=== PATIENT | female | born 1945 | race Caucasian/White ===

== ENCOUNTER 2020-10-11 00:19 | Emergency (ER) | payer MEDICARE, OTHER ==
[~2020-10-11] VITALS: Ht 154.9 cm; Wt 59.0 kg
[2020-10-11 05:05] LABS: Calcium, Ionized (POC) 1.24 mmol/L (1.10-1.46); Chloride (POC) 106 mmol/L (98-108); Creatinine (POC) 1.7 mg/dL (0.6-1.0); Glucose (ISTAT POC) 110 mg/dL (70-99); Hemoglobin (POC) 11.9 g/dL (12.0-16.0); Potassium (POC) 3.8 mmol/L (3.5-5.5); Sodium (POC) 142 mmol/L (135-148); Total CO2 (POC) 23 mmol/L (21-32)
== END 2020-10-11 05:21 | disposition home or self-care (01) ==
LOC: ER 00:19
PROVIDERS: Emergency Medicine
DX: S00.11XA Contusion of right eyelid and periocular area, initial encounter (principal); I10 Essential (primary) hypertension; W01.10XA Fall on same level from slipping, tripping and stumbling with subsequent striking against unspecified object, initial encounter
CPT/HCPCS: 36415; 70450; 70486; 72125; 80047; 85014; 99284-25

== ENCOUNTER 2021-11-18 22:36 | Emergency (ER) | payer MEDICARE ==
[~2021-11-18] VITALS: Ht 154.9 cm; Wt 72.6 kg
[2021-11-19] MEDS ORDERED: LOSARTAN POTASS25 M2 PO (01:42)
[2021-11-19] MEDS ORDERED: ATENOLOL25 MG PO (01:42)
[2021-11-19] MEDS ORDERED: CATAPRES0.1 MG PO (01:42)
[2021-11-19] MEDS ORDERED: FENO54 PO (01:43)
[2021-11-19] MEDS ORDERED: LOVASTATIN20 MG PO (01:43)
[2021-11-19] MEDS ORDERED: METF500 PO (01:43)
== END 2021-11-19 03:19 | disposition home or self-care (01) ==
LOC: ER 22:36
DX: S01.01XA Laceration without foreign body of scalp, initial encounter (principal); Z79.899 Other long term (current) drug therapy; Z79.84 Long term (current) use of oral hypoglycemic drugs; W18.30XA Fall on same level, unspecified, initial encounter
CPT/HCPCS: 12002; 99282-25

== ENCOUNTER 2023-04-07 16:23 | Emergency (ER) | payer MEDICARE ==
[~2023-04-07] VITALS: Ht 154.9 cm; Wt 52.2 kg
[~2023-04-07 16:23] MED LIST: ATENOLOL25 MG PO; CATAPRES0.1 MG PO; FENO54 PO; LOSARTAN POTASS25 M2 PO; LOVASTATIN20 MG PO; METF500 PO
[2023-04-07 18:28] LABS: BASOPHILS ABSOLUTE AUTO 0.09 K/mm3 (0.00-0.23); BASOPHILS PERCENT AUTO 1 % (0-2); EOSINOPHILS ABSOLUTE AUTO 0.07 K/mm3 (0.00-0.68); EOSINOPHILS PERCENT AUTO 1 % (0-6); Hematocrit 37.1 % (33.0-51.0); IMMATURE GRAN ABSOLUTE AUTO 0.04 K/mm3 (0.00-0.10); IMMATURE GRAN PERCENT AUTO 0 % (0-1); LYMPHOCYTES ABSOLUTE AUTO 1.51 K/mm3 (0.84-5.20); LYMPHOCYTES PERCENT AUTO 13 % (21-46); MONOCYTES ABSOLUTE AUTO 0.67 K/mm3 (0.16-1.47); MONOCYTES PERCENT AUTO 6 % (4-13); Mean Corpuscular HGB 30.8 pg (26.0-34.0); Mean Corpuscular HGB Conc 32.3 g/dL (31.5-36.5); Mean Corpuscular Volume 95 fL (80-100); Mean Platelet Volume 9.6 fL (9.1-12.4); NEUTROPHILS ABSOLUTE AUTO 9.63 K/mm3 (1.96-9.15); NEUTROPHILS PERCENT AUTO 80 % (41-73); Platelet Count 232 K/mm3 (150-400); RDW Coefficient Variation 13.1 % (11.7-14.2); RDW Standard Deviation 45.9 fL (35.1-46.3); Red Blood Cell Count 3.89 M/mm3 (3.80-5.20); White Blood Cell Count 12.01 K/mm3 (4.00-11.30)
[2023-04-07 18:49] LABS: Source, Urine Clean Catch
[2023-04-07 18:55] LABS: Appearance, Urine Hazy (Clear); Bilirubin, Urine Neg (Neg); Blood, Urine Neg (Neg); Color, Urine Yellow (P-Yellow); Glucose Qualitative, Urine Neg (Neg); Ketones, Urine Neg (Neg); Leukocyte Esterase, Urine Neg (Neg); Nitrite, Urine Pos (Neg); Protein, Urine 3+ (Neg); Urobilinogen, Urine NORM (Normal)
[2023-04-07 19:02] LABS: Ethanol (Alcohol), Blood, Med <3 mg/dL; Salicylate <1.7 mg/dL (2.8-20.0)
[2023-04-07 19:06] LABS: Acetaminophen, Random <2.0 ug/mL (10.0-30.0); Alanine Aminotransfer (ALT/SGP 17 U/L (12-78); Albumin, Blood 3.8 g/dL (3.4-5.0); Albumin/Globulin Ratio 0.9 (0.8-1.8); Alk Phos 122 U/L (50-136); Anion Gap 7 mmol/L (6-16); Aspartate Aminotrans (AST/SGOT 20 U/L (12-37); Bilirubin, Total 0.3 mg/dL (0.1-1.0); Blood Urea Nitrogen 41 mg/dL (8-24); Bun/Creatinine Ratio 23.8 (12.0-20.0); CO2, Blood 28 mmol/L (21-32); Calcium, Blood 9.2 mg/dL (8.5-10.1); Chloride, Blood 106 mmol/L (98-108); Creatinine, Blood 1.72 mg/dL (0.40-1.00); Globulin, Blood 4.1 g/dL (2.2-4.0); Glomerular Filtration Rate 30 (60-); Glucose, Blood 107 mg/dL (70-99); Potassium, Blood 3.9 mmol/L (3.5-5.5); Sodium, Blood 141 mmol/L (136-145); Total Protein, Blood 7.9 g/dL (6.4-8.2)
[2023-04-07 19:06] LABS: Bacteria Many /hpf; Red Blood Cells, Urine 0-2 /hpf (0-2); Squamous Epithelial Cells Few /hpf (Few)
[2023-04-07 19:11] LABS: U Amphetamine Screen Not Detected; U Barbituate Screen Not Detected; U Benzodiazapine Screen Not Detected; U Buprenorphine Screen Not Detected; U Cannabinoids Screen Not Detected; U Cocaine Screen Not Detected; U Methadone Screen Not Detected; U Methamphetamine Screen Not Detected; U Opiates Screen Not Detected; U Oxycodone Screen Not Detected; U Phencyclidine Screen Not Detected
[2023-04-08 13:45] VITALS: BP 162/107
[2023-04-08] MEDS ORDERED: ATEN25 PO (13:52)
[2023-04-08] MEDS ORDERED: CEFD300 PO (13:52)
[2023-04-08] MEDS ORDERED: LOSA25 PO (13:52)
== END 2023-04-08 14:00 | disposition home or self-care (01) ==
LOC: ER 16:23
PROVIDERS: Physician Assistant
DX: N39.0 Urinary tract infection, site not specified (principal); F03.90 Unspecified dementia, unspecified severity, without behavioral disturbance, psychotic disturbance, mood disturbance, and anxiety; I12.9 Hypertensive chronic kidney disease with stage 1 through stage 4 chronic kidney disease, or unspecified chronic kidney disease; E11.22 Type 2 diabetes mellitus with diabetic chronic kidney disease; N18.9 Chronic kidney disease, unspecified; E78.5 Hyperlipidemia, unspecified; Z79.899 Other long term (current) drug therapy; Z79.84 Long term (current) use of oral hypoglycemic drugs
CPT/HCPCS: 80053; 81001; 85025; 87077; 87086; 87186; 99285; A9270; G0480

== ENCOUNTER 2024-04-23 15:46 | Inpatient (IN) | payer MEDICARE ==
[~2024-04-23] VITALS: Ht 157.5 cm; Wt 63.9 kg
[~2024-04-23 15:46] MED LIST changes: +ATEN25 PO; +CEFD300 PO; +LOSA25 PO
[2024-04-23 17:07] LABS: BASOPHILS ABSOLUTE AUTO 0.05 K/mm3 (0.00-0.23); BASOPHILS PERCENT AUTO 0 % (0-2); EOSINOPHILS ABSOLUTE AUTO 0.06 K/mm3 (0.00-0.68); EOSINOPHILS PERCENT AUTO 1 % (0-6); Hematocrit 34.6 % (33.0-51.0); Hemoglobin 11.4 g/dL (11.5-16.0); IMMATURE GRAN ABSOLUTE AUTO 0.06 K/mm3 (0.00-0.10); IMMATURE GRAN PERCENT AUTO 1 % (0-1); LYMPHOCYTES ABSOLUTE AUTO 1.06 K/mm3 (0.84-5.20); LYMPHOCYTES PERCENT AUTO 9 % (21-46); MONOCYTES ABSOLUTE AUTO 0.79 K/mm3 (0.16-1.47); MONOCYTES PERCENT AUTO 7 % (4-13); Mean Corpuscular HGB 30.5 pg (26.0-34.0); Mean Corpuscular HGB Conc 32.9 g/dL (31.5-36.5); Mean Corpuscular Volume 93 fL (80-100); Mean Platelet Volume 8.9 fL (9.1-12.4); NEUTROPHILS PERCENT AUTO 83 % (41-73); Platelet Count 305 K/mm3 (150-400); RDW Coefficient Variation 12.1 % (11.7-14.2); RDW Standard Deviation 41.1 fL (35.1-46.3); Red Blood Cell Count 3.74 M/mm3 (3.80-5.20); White Blood Cell Count 11.92 K/mm3 (4.00-11.30)
[2024-04-23 17:45] LABS: Ethanol (Alcohol), Blood, Med <3 mg/dL; Salicylate <1.7 mg/dL (2.8-20.0)
[2024-04-23 17:55] LABS: Alanine Aminotransfer (ALT/SGP 23 U/L (12-78); Albumin, Blood 2.9 g/dL (3.4-5.0); Albumin/Globulin Ratio 0.6 (0.8-1.8); Alk Phos 158 U/L (50-136); Anion Gap 11 mmol/L (3-11); Aspartate Aminotrans (AST/SGOT 26 U/L (12-37); Bilirubin, Total 0.4 mg/dL (0.1-1.0); Blood Urea Nitrogen 26 mg/dL (8-24); Bun/Creatinine Ratio 15.8 (12.0-20.0); CO2, Blood 26 mmol/L (21-32); Calcium, Blood 9.4 mg/dL (8.5-10.1); Chloride, Blood 106 mmol/L (98-108); Creatinine, Blood 1.65 mg/dL (0.40-1.00); Globulin, Blood 4.6 g/dL (2.2-4.0); Glomerular Filtration Rate 31 (60-); Glucose, Blood 98 mg/dL (70-99); Potassium, Blood 3.9 mmol/L (3.5-5.5); Sodium, Blood 139 mmol/L (136-145); Total Protein, Blood 7.5 g/dL (6.4-8.2)
[2024-04-23 17:58] LABS: Acetaminophen, Random <2.0 ug/mL (10.0-30.0)
[2024-04-23 19:00] LABS: Source, Urine Clean Catch
[2024-04-23 19:03] LABS: Appearance, Urine Hazy (Clear); Bilirubin, Urine Neg (Neg); Blood, Urine 1+ (Neg); Color, Urine Yellow (P-Yellow); Glucose Qualitative, Urine Neg (Neg); Ketones, Urine Neg (Neg); Leukocyte Esterase, Urine 2+ (Neg); Nitrite, Urine Neg (Neg); Protein, Urine 2+ (Neg); Specific Gravity, Urine 1.015 (1.003-1.022); Urobilinogen, Urine NORM (Normal)
[2024-04-23 19:11] LABS: Amorphous Light (0-Heavy); Bacteria Many /hpf; Squamous Epithelial Cells Few /hpf (Few); White Blood Cells, Urine 25-50 /hpf (0-5)
[2024-04-23 19:17] LABS: U Amphetamine Screen Not Detected; U Barbituate Screen Not Detected; U Benzodiazapine Screen Not Detected; U Buprenorphine Screen Not Detected; U Cannabinoids Screen Not Detected; U Cocaine Screen Not Detected; U Methadone Screen Not Detected; U Methamphetamine Screen Not Detected; U Opiates Screen Not Detected; U Oxycodone Screen Not Detected; U Phencyclidine Screen Not Detected
[2024-04-23] MEDS ORDERED: CefTRIAXone Sodium 2,000 MG in NS 100 ML IV ONE (19:40)
[2024-04-24] MEDS ORDERED: Acetaminophen 325 MG TABLET PO PRN (00:45)
[2024-04-24] MEDS ORDERED: FLU VACC TS2024-25(6MOS UP)/PF 45 MCG/0.5 ML SYRINGE IM ONE (00:45)
[2024-04-24] MEDS ORDERED: QUEtiapine Fumarate 50 MG TAB PO PRN (00:50)
[2024-04-24] MEDS ORDERED: Ondansetron HCl 2 MG / ML 2ML Vial IV PRN (00:50)
[2024-04-24] MEDS ORDERED: Melatonin 5 MG Tablet PO PRN (00:50)
[2024-04-24] MEDS ORDERED: Lactated Ringer's 1,000 ML IV SCH (01:00)
[2024-04-24 03:00] VITALS: BP 122/87
[2024-04-24 05:10] LABS: BASOPHILS ABSOLUTE AUTO 0.03 K/mm3 (0.00-0.23); BASOPHILS PERCENT AUTO 0 % (0-2); EOSINOPHILS ABSOLUTE AUTO 0.26 K/mm3 (0.00-0.68); EOSINOPHILS PERCENT AUTO 3 % (0-6); Hematocrit 30.5 % (33.0-51.0); Hemoglobin 10.1 g/dL (11.5-16.0); IMMATURE GRAN ABSOLUTE AUTO 0.03 K/mm3 (0.00-0.10); IMMATURE GRAN PERCENT AUTO 0 % (0-1); LYMPHOCYTES ABSOLUTE AUTO 1.66 K/mm3 (0.84-5.20); LYMPHOCYTES PERCENT AUTO 18 % (21-46); MONOCYTES ABSOLUTE AUTO 0.66 K/mm3 (0.16-1.47); MONOCYTES PERCENT AUTO 7 % (4-13); Mean Corpuscular HGB Conc 33.1 g/dL (31.5-36.5); Mean Corpuscular Volume 94 fL (80-100); NEUTROPHILS ABSOLUTE AUTO 6.44 K/mm3 (1.96-9.15); NEUTROPHILS PERCENT AUTO 71 % (41-73); Platelet Count 268 K/mm3 (150-400); RDW Coefficient Variation 12.3 % (11.7-14.2); RDW Standard Deviation 42.3 fL (35.1-46.3); Red Blood Cell Count 3.26 M/mm3 (3.80-5.20); White Blood Cell Count 9.08 K/mm3 (4.00-11.30)
[2024-04-24 05:26] LABS: Anti-Xa UFH, PHA Monitoring <0.10 IU/mL; International Normalized Ratio 1.09; Prothrombin Time Results 11.6 Sec (9.7-11.5)
[2024-04-24] MEDS ORDERED: Heparin Sodium 5000 Units/ML 1ML MDV IV ONE (05:35)
[2024-04-24] MEDS ORDERED: Dose Adjust by Pharmacy XX STA ×2 (05:35→13:03)
[2024-04-24] MEDS ORDERED: Heparin Sodium,Porcine/0.5 NS 500 ML IV SCH (05:35)
[2024-04-24 05:51] LABS: Albumin, Blood 2.6 g/dL (3.4-5.0); Albumin/Globulin Ratio 0.7 (0.8-1.8); Bilirubin, Total 0.3 mg/dL (0.1-1.0); Bun/Creatinine Ratio 15.5 (12.0-20.0); Calcium, Blood 9.2 mg/dL (8.5-10.1); Creatinine, Blood 1.61 mg/dL (0.40-1.00); Globulin, Blood 3.7 g/dL (2.2-4.0); Magnesium, Blood 2.1 mg/dL (1.6-2.4); Potassium, Blood 4.3 mmol/L (3.5-5.5); Total Protein, Blood 6.3 g/dL (6.4-8.2)
[2024-04-24 07:48] VITALS: BP 177/91
[2024-04-24] MEDS ORDERED: CloNIDine 0.1 MG Tab PO SCH (08:10)
[2024-04-24] MEDS ORDERED: Losartan Potassium 50 MG Tab PO SCH (09:00)
[2024-04-24] MEDS ORDERED: Lactobacil 2-S.Thermo-Bifido 1 1 Cap PO SCH (09:00)
[2024-04-24] MEDS ORDERED: Enoxaparin 30 MG/0.3 ML SYR SC SCH (09:00)
[2024-04-24] MEDS ORDERED: Atenolol 25 MG Tab PO SCH (09:00)
[2024-04-24] MEDS ORDERED: Insulin Human Lispro 100 Units/ML 3ML Syringe SC SCH ×2 (11:30→12:00)
[2024-04-24] MEDS ORDERED: Magnesium Hydroxide Conc 10 ML UDC PO PRN (11:45)
[2024-04-24] MEDS ORDERED: Bisacodyl 10 MG Supp PR PRN (11:45)
[2024-04-24 12:48] LABS: BASOPHILS ABSOLUTE AUTO 0.04 K/mm3 (0.00-0.23); BASOPHILS PERCENT AUTO 0 % (0-2); EOSINOPHILS ABSOLUTE AUTO 0.27 K/mm3 (0.00-0.68); EOSINOPHILS PERCENT AUTO 3 % (0-6); Hematocrit 29.5 % (33.0-51.0); Hemoglobin 9.8 g/dL (11.5-16.0); IMMATURE GRAN ABSOLUTE AUTO 0.04 K/mm3 (0.00-0.10); IMMATURE GRAN PERCENT AUTO 0 % (0-1); LYMPHOCYTES PERCENT AUTO 20 % (21-46); MONOCYTES ABSOLUTE AUTO 0.54 K/mm3 (0.16-1.47); MONOCYTES PERCENT AUTO 6 % (4-13); Mean Corpuscular HGB 31.2 pg (26.0-34.0); Mean Corpuscular HGB Conc 33.2 g/dL (31.5-36.5); Mean Corpuscular Volume 94 fL (80-100); Mean Platelet Volume 9.7 fL (9.1-12.4); NEUTROPHILS ABSOLUTE AUTO 6.34 K/mm3 (1.96-9.15); NEUTROPHILS PERCENT AUTO 70 % (41-73); Platelet Count 287 K/mm3 (150-400); RDW Coefficient Variation 12.3 % (11.7-14.2); RDW Standard Deviation 42.5 fL (35.1-46.3); Red Blood Cell Count 3.14 M/mm3 (3.80-5.20); White Blood Cell Count 9.03 K/mm3 (4.00-11.30)
[2024-04-24 12:56] VITALS: BP 131/116
--- NOTE | 2024-04-24 14:48 | NUR ---
DR. GROSSMAN NOTIFIED OF BLE DVT'S PER SOD CUTTER.
[2024-04-24 15:28] VITALS: BP 190/65
[2024-04-24] MEDS ORDERED: NS 250 ML IV PRN (17:50)
[2024-04-24] MEDS ORDERED: CefTRIAXone Sodium 1,000 MG in NS 100 ML IV SCH ×2 (18:00→21:00)
[2024-04-24 19:21] VITALS: BP 145/62
[2024-04-24] MEDS ORDERED: Apixaban 5 MG Tab PO SCH (20:00)
--- NOTE | 2024-04-24 20:09 | NUR ---
SHIFT SUMMARY PATIENT ALERT AND ORIENTED X2-3. ABLE TO MAKE NEEDS KNOWN, BUT FORGETFUL ADN IMPULSIVE. BLOOD PRESSURES ELEVATED THIS SHIFT, RESTARTED ON HOME BP MEDICATIONS. MD NOTIFIED THIS EVENING THAT CLONIDINE PILL WAS FOUND IN PATIENT'S BEDDING AND MUST HAVE DROPPED DURING MORNING MED ADMINISTRATION. MD STATED TO ADMINISTER 2100 DOSE NOW. MEDICATION ADMINISTERED PER JUN. NO PRN BLOOD PRESSURE MEDS AT THIS TIME. LR RUNNING PER ORDERS. DVT TO BLE L>R. HEPARIN GTT INFUSING PER ORDERS, RATE CHANGED THIS SHIFT. PATIENT EASILY AGITATED, BUT COOPERATIVE WITH CARE. IV ABX INFUSED PER JUN. ABLE TO AMBULATE TO THE BATHROOM WITH ASSISTANCE. PATIETN CHANGED FROM NPO TO CONSISTANT CARB DIET THIS MORNING, TOLERATIGN WELL. NO OTHER CONCERNS AT THIS TIME.
[2024-04-24] MEDS ORDERED: Sennosides 8.6 MG Tab PO SCH (21:00)
[2024-04-24] MEDS ORDERED: Docusate Sodium 100 MG Cap PO SCH (21:00)
[2024-04-25 05:27] VITALS: BP 145/83
[2024-04-25 05:50] LABS: BASOPHILS ABSOLUTE AUTO 0.04 K/mm3 (0.00-0.23); BASOPHILS PERCENT AUTO 1 % (0-2); EOSINOPHILS ABSOLUTE AUTO 0.29 K/mm3 (0.00-0.68); EOSINOPHILS PERCENT AUTO 4 % (0-6); Hemoglobin 8.6 g/dL (11.5-16.0); IMMATURE GRAN ABSOLUTE AUTO 0.04 K/mm3 (0.00-0.10); IMMATURE GRAN PERCENT AUTO 1 % (0-1); LYMPHOCYTES ABSOLUTE AUTO 1.92 K/mm3 (0.84-5.20); LYMPHOCYTES PERCENT AUTO 28 % (21-46); MONOCYTES ABSOLUTE AUTO 0.52 K/mm3 (0.16-1.47); MONOCYTES PERCENT AUTO 8 % (4-13); Mean Corpuscular HGB 30.6 pg (26.0-34.0); Mean Corpuscular HGB Conc 31.9 g/dL (31.5-36.5); Mean Corpuscular Volume 96 fL (80-100); Mean Platelet Volume 9.1 fL (9.1-12.4); NEUTROPHILS ABSOLUTE AUTO 4.11 K/mm3 (1.96-9.15); NEUTROPHILS PERCENT AUTO 59 % (41-73); Platelet Count 248 K/mm3 (150-400); RDW Coefficient Variation 12.3 % (11.7-14.2); Red Blood Cell Count 2.81 M/mm3 (3.80-5.20); White Blood Cell Count 6.92 K/mm3 (4.00-11.30)
--- NOTE | 2024-04-25 06:22 | NUR ---
SHIFT SUMMARY - NO ACUTE CHANGES THROUGHOUT THIS SHIFT. PT HAS BEEN COOPERATIVE WITH CARE. PT HAS BEEN SLEEPING THROUGHOUT MOST OF THE NIGHT. PT HAS DENIED ANY PAIN. HEPARIN TURNED OFF AT 2130 TONIGHT - PT STARTED ON ELIQUIS TONIGHT - SPOKE WITH PHARMACIST TO CONFIRM HEPARIN TO BE TURNED OFF. PT DENIED ANY DISCOMFORT THROUGHOUT THE NIGHT. CALL LIGHT WITHIN REACH. BED IN LOW POSITION. FLUIDS AT BEDSIDE.
[2024-04-25 06:24] LABS: Albumin, Blood 2.1 g/dL (3.4-5.0); Albumin/Globulin Ratio 0.7 (0.8-1.8); Bilirubin, Total 0.2 mg/dL (0.1-1.0); Bun/Creatinine Ratio 14.8 (12.0-20.0); Calcium, Blood 8.6 mg/dL (8.5-10.1); Creatinine, Blood 1.76 mg/dL (0.40-1.00); Magnesium, Blood 2.1 mg/dL (1.6-2.4); Phosphorus, Blood 3.6 mg/dL (2.5-4.9); Potassium, Blood 4.5 mmol/L (3.5-5.5); Total Protein, Blood 5.1 g/dL (6.4-8.2)
[2024-04-25 07:38] VITALS: BP 161/83
[2024-04-25 14:53] VITALS: BP 156/84
[2024-04-25 20:11] VITALS: BP 147/50
--- NOTE | 2024-04-25 20:12 | NUR ---
SHIFT SUMMARY MS WOODS IS ORIENTATED TO HER NAME AND TO THE HOSPITAL, NOT WHICH HOSPITAL, REASON FOR ADMISSION OR DATE/YEAR. RAMBLING NONSENSICAL CONVERSATION. SHE HAS DENIED ANY PAIN OR DISCOMFORT. UP TO BATHROOM WITH 1 PERSON ASSIST USING GAITBELT AND FWW. BED ALARM USED PT HAS TRIED TO GET UP BY HERSELF. CONTINENT AND INCONTINENT.
--- NOTE | 2024-04-26 03:27 | NUR ---
FRONT MAKER SUMMARY VSS. WAS AGITATED, ANXIOUS AND DIFFICULT TO REDIRECT AT SHIFT START, VOICED SHE WAS GOING TO "THE [facility]" FOR [facility] AND DIDNT SEEM TO ACCEPT THAT SHE WAS IN THE HOSPITAL. HOWEVER, WITH CONSTANT REDIRECTION, SHE FINALLY VOICED SHE WOULD GO TO SLEEP AND DISCUSS IT WITH THE AM STAFF (RE THE BANK). TOLERATED HS MEDS WELL. HOB ELEVATED FOR RESP COMFORT. UP AD DENZEL WITH OBS/ASSIST. HAS BEEN RESTING QUIETLY WITH FEW INTERRUPTIONS SINCE HS. CALL LIGHT IN REACH, RAILS UP X 2 AND BED IN LOW POSITION FOR SAFETY. ABLE TO REPOSITION SELF IN BED WITHOUT ASSIST. WILL CONTINUE TO MONITOR
[2024-04-26 04:59] VITALS: BP 141/56
[2024-04-26 05:47] LABS: BASOPHILS ABSOLUTE AUTO 0.05 K/mm3 (0.00-0.23); BASOPHILS PERCENT AUTO 1 % (0-2); EOSINOPHILS ABSOLUTE AUTO 0.44 K/mm3 (0.00-0.68); EOSINOPHILS PERCENT AUTO 5 % (0-6); Hematocrit 29.7 % (33.0-51.0); Hemoglobin 9.5 g/dL (11.5-16.0); IMMATURE GRAN ABSOLUTE AUTO 0.04 K/mm3 (0.00-0.10); IMMATURE GRAN PERCENT AUTO 1 % (0-1); LYMPHOCYTES ABSOLUTE AUTO 2.09 K/mm3 (0.84-5.20); LYMPHOCYTES PERCENT AUTO 25 % (21-46); MONOCYTES PERCENT AUTO 8 % (4-13); Mean Corpuscular HGB 30.2 pg (26.0-34.0); Mean Corpuscular Volume 94 fL (80-100); Mean Platelet Volume 9.5 fL (9.1-12.4); NEUTROPHILS PERCENT AUTO 61 % (41-73); Platelet Count 300 K/mm3 (150-400); RDW Coefficient Variation 12.3 % (11.7-14.2); RDW Standard Deviation 42.5 fL (35.1-46.3); Red Blood Cell Count 3.15 M/mm3 (3.80-5.20); White Blood Cell Count 8.52 K/mm3 (4.00-11.30)
[2024-04-26 06:27] LABS: Albumin, Blood 2.3 g/dL (3.4-5.0); Albumin/Globulin Ratio 0.7 (0.8-1.8); Bilirubin, Total 0.2 mg/dL (0.1-1.0); Bun/Creatinine Ratio 16.3 (12.0-20.0); Creatinine, Blood 1.9 mg/dL (0.40-1.00); Globulin, Blood 3.4 g/dL (2.2-4.0); Potassium, Blood 4.5 mmol/L (3.5-5.5); Total Protein, Blood 5.7 g/dL (6.4-8.2)
[2024-04-26 07:21] VITALS: BP 166/86
[2024-04-26 10:22] VITALS: BP 140/99
[2024-04-26 15:02] VITALS: BP 134/87
[2024-04-26 19:14] VITALS: BP 138/77
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
[2024-04-27 03:28] VITALS: BP 132/68
[2024-04-27 06:22] LABS: BASOPHILS ABSOLUTE AUTO 0.05 K/mm3 (0.00-0.23); BASOPHILS PERCENT AUTO 1 % (0-2); EOSINOPHILS ABSOLUTE AUTO 0.47 K/mm3 (0.00-0.68); EOSINOPHILS PERCENT AUTO 4 % (0-6); Hematocrit 32.7 % (33.0-51.0); Hemoglobin 10.2 g/dL (11.5-16.0); IMMATURE GRAN ABSOLUTE AUTO 0.06 K/mm3 (0.00-0.10); IMMATURE GRAN PERCENT AUTO 1 % (0-1); LYMPHOCYTES ABSOLUTE AUTO 2.29 K/mm3 (0.84-5.20); LYMPHOCYTES PERCENT AUTO 21 % (21-46); MONOCYTES ABSOLUTE AUTO 0.79 K/mm3 (0.16-1.47); MONOCYTES PERCENT AUTO 7 % (4-13); Mean Corpuscular HGB 30.6 pg (26.0-34.0); Mean Corpuscular HGB Conc 31.2 g/dL (31.5-36.5); Mean Corpuscular Volume 98 fL (80-100); Mean Platelet Volume 9.7 fL (9.1-12.4); NEUTROPHILS ABSOLUTE AUTO 7.18 K/mm3 (1.96-9.15); NEUTROPHILS PERCENT AUTO 66 % (41-73); Platelet Count 291 K/mm3 (150-400); RDW Coefficient Variation 12.5 % (11.7-14.2); RDW Standard Deviation 44.8 fL (35.1-46.3); Red Blood Cell Count 3.33 M/mm3 (3.80-5.20); White Blood Cell Count 10.84 K/mm3 (4.00-11.30)
[2024-04-27 06:45] LABS: Albumin, Blood 2.4 g/dL (3.4-5.0); Anion Gap 9 mmol/L (3-11); Blood Urea Nitrogen 36 mg/dL (8-24); Bun/Creatinine Ratio 17.5 (12.0-20.0); CO2, Blood 25 mmol/L (21-32); Calcium, Blood 8.7 mg/dL (8.5-10.1); Chloride, Blood 111 mmol/L (98-108); Creatinine, Blood 2.06 mg/dL (0.40-1.00); Glomerular Filtration Rate 24 (60-); Glucose, Blood 95 mg/dL (70-99); Magnesium, Blood 2.2 mg/dL (1.6-2.4); Potassium, Blood 4.9 mmol/L (3.5-5.5); Sodium, Blood 140 mmol/L (136-145)
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
[2024-04-27 07:55] VITALS: BP 137/68
[2024-04-27 16:30] VITALS: BP 156/69
[2024-04-27 19:14] VITALS: BP 143/104
--- NOTE | 2024-04-27 19:25 | NUR ---
SHIFT SUMMARY- PT HAS HAD NO ACUTE CHANGE T/O THE SHIFT. SHE IS ALERT AND ORIENTED WITH THE SAME TYPE OF CONFUSED CONVERSATION PATTERN YESTERDAY, SHE COVERS FOR HER CONFUSION WITH ATTEMPTED HUMOR. PT SITTING AT THE EOB, CALL LIGHT IN REACH, ABX RUNNING INTO THE LEFT AC IV NO S&S OF DISTRESS NOTED AT THE TIME OF BEDSIDE REPORT.
--- NOTE | 2024-04-28 03:44 | NUR ---
Pt A&O x3, she has boughts of increased confusion, is impulsive and does not call for assist to transfer, bedalarm in place. Pt with paranoid delusions stating that her daughter is , and that someone is trying to kill her, and then she doesn't believe she is 79, and thinks her daughter is missing and that she is just a teenager, does not comprehend that her and todays date indicates that she is 79. Pt VS WNL, PO intake WNL, CBG 123. She does require assist with transfers and ambulation d/t unsteadiness. Denies pain. Continues on IVABX's. BM 04/28.
[2024-04-28 04:23] VITALS: BP 136/58
[2024-04-28 05:46] LABS: BASOPHILS ABSOLUTE AUTO 0.04 K/mm3 (0.00-0.23); BASOPHILS PERCENT AUTO 0 % (0-2); EOSINOPHILS ABSOLUTE AUTO 0.43 K/mm3 (0.00-0.68); EOSINOPHILS PERCENT AUTO 4 % (0-6); Hematocrit 29.4 % (33.0-51.0); Hemoglobin 9.5 g/dL (11.5-16.0); IMMATURE GRAN ABSOLUTE AUTO 0.04 K/mm3 (0.00-0.10); IMMATURE GRAN PERCENT AUTO 0 % (0-1); LYMPHOCYTES ABSOLUTE AUTO 2.11 K/mm3 (0.84-5.20); LYMPHOCYTES PERCENT AUTO 22 % (21-46); MONOCYTES ABSOLUTE AUTO 0.69 K/mm3 (0.16-1.47); MONOCYTES PERCENT AUTO 7 % (4-13); Mean Corpuscular HGB 30.5 pg (26.0-34.0); Mean Corpuscular HGB Conc 32.3 g/dL (31.5-36.5); Mean Corpuscular Volume 95 fL (80-100); Mean Platelet Volume 9.7 fL (9.1-12.4); NEUTROPHILS ABSOLUTE AUTO 6.47 K/mm3 (1.96-9.15); NEUTROPHILS PERCENT AUTO 66 % (41-73); Platelet Count 306 K/mm3 (150-400); RDW Coefficient Variation 12.5 % (11.7-14.2); Red Blood Cell Count 3.11 M/mm3 (3.80-5.20); White Blood Cell Count 9.78 K/mm3 (4.00-11.30)
[2024-04-28 06:10] LABS: Calcium, Blood 8.9 mg/dL (8.5-10.1); Creatinine, Blood 1.95 mg/dL (0.40-1.00); Potassium, Blood 5.1 mmol/L (3.5-5.5)
[2024-04-28 07:12] VITALS: BP 162/81
[2024-04-28 08:05] LABS: RETIC HGB EQUIVALENT 35.1 pg (28.20-36.60); RETICULOCYTE ABSOLUTE 0.0521 M/mm3 (0.0200-0.1100); RETICULOCYTE COUNT PERCENT 1.68 % (0.50-2.50)
[2024-04-28 14:49] VITALS: BP 148/66
[2024-04-28] MEDS ORDERED: Ferrous Sulfate 325 MG Tab PO SCH (15:00)
--- NOTE | 2024-04-28 18:31 | NUR ---
SHIFT SUMMARY- PT HAS HAD NO ACUTE CHANGE THIS SHIFT. SHE SEEMS TO DO BETTER WITH LESS INTERACTION FROM STAFF. THE PT REQUIRES FREQUENT CUES, SHE IS A LITTLE UNSTEADY ON HER FEET, BED AND CHAIR ALARMS ARE BEING USED TO PREVENT FALLS. PT PATIENTLY SITS AND WAITS FOR STAFF TO RESPOND IF THE ALARM GOES OFF. SAYING "I DIDN'T DO IT" AND LAUGHING. SHE IS CURRENTLY IN BED, CALL LIGHT IN REACH NO S&S OF DISTRESS NOTED, WILL PASS OJ IN BEDSIDE REPORT TO NIGHT RN.
[2024-04-28 19:19] VITALS: BP 154/82
[2024-04-29 02:38] VITALS: BP 151/82
[2024-04-29 06:11] LABS: BASOPHILS ABSOLUTE AUTO 0.05 K/mm3 (0.00-0.23); BASOPHILS PERCENT AUTO 1 % (0-2); EOSINOPHILS ABSOLUTE AUTO 0.45 K/mm3 (0.00-0.68); EOSINOPHILS PERCENT AUTO 4 % (0-6); Hematocrit 30.4 % (33.0-51.0); Hemoglobin 9.8 g/dL (11.5-16.0); IMMATURE GRAN ABSOLUTE AUTO 0.05 K/mm3 (0.00-0.10); IMMATURE GRAN PERCENT AUTO 1 % (0-1); LYMPHOCYTES ABSOLUTE AUTO 2.06 K/mm3 (0.84-5.20); LYMPHOCYTES PERCENT AUTO 19 % (21-46); MONOCYTES ABSOLUTE AUTO 0.62 K/mm3 (0.16-1.47); MONOCYTES PERCENT AUTO 6 % (4-13); Mean Corpuscular HGB 30.5 pg (26.0-34.0); Mean Corpuscular HGB Conc 32.2 g/dL (31.5-36.5); Mean Corpuscular Volume 95 fL (80-100); Mean Platelet Volume 9.5 fL (9.1-12.4); NEUTROPHILS ABSOLUTE AUTO 7.56 K/mm3 (1.96-9.15); NEUTROPHILS PERCENT AUTO 70 % (41-73); Platelet Count 308 K/mm3 (150-400); RDW Coefficient Variation 12.5 % (11.7-14.2); RDW Standard Deviation 43.1 fL (35.1-46.3); Red Blood Cell Count 3.21 M/mm3 (3.80-5.20); White Blood Cell Count 10.79 K/mm3 (4.00-11.30)
[2024-04-29 06:55] LABS: Bun/Creatinine Ratio 20.2 (12.0-20.0); Calcium, Blood 9.2 mg/dL (8.5-10.1); Creatinine, Blood 1.98 mg/dL (0.40-1.00); Potassium, Blood 4.9 mmol/L (3.5-5.5)
[2024-04-29 07:34] VITALS: BP 185/88
[2024-04-29 11:41] VITALS: BP 141/82
[2024-04-29] MEDS ORDERED: QUEtiapine Fumarate 25 MG Tab PO PRN (14:10)
[2024-04-29] MEDS ORDERED: OLANZapine 10 MG Vial IM PRN (14:10)
[2024-04-29 15:20] VITALS: BP 144/71
--- NOTE | 2024-04-29 18:30 | NUR ---
SHIFT SUMMARY PT AOX2, CONFUSED AND GRANDIOSE IDEAS AT TIMES. PLEASANT AND COOPERATIVE WITH CARE TODAY. SBA TO THE BR USING THE FWW. REPOSITIONS SELF IN BED BUT ASSISTED WHEN NEEDED. NO OTHER COMPLAINTS PER THE PT. SHE CAN BE IMPULSIVE, BA ON. SHE DOES NOT CALL. CALL LIGHT WITHIN REACH, BED LOCKED AND IN THE LOWEST POSITION. WILL REPORT TO ONCOMING NURSE.
[2024-04-29] MEDS ORDERED: QUEtiapine Fumarate 50 MG TAB PO SCH (21:00)
[2024-04-29 21:21] VITALS: BP 167/79
[2024-04-30 04:53] VITALS: BP 151/72
--- NOTE | 2024-04-30 06:02 | NUR ---
NPC SUMMARY- PT HAS BEEN MOSTLY PLESANT THIS SHIFT. PT HAS BEEN CALLING FOR ASSISTANCE TO BATHROOM. PT WAS ABLE TO SLEEP SOME WITHOUT ISSUE. THIS AM PT WAS FOUND TO BE INCONTINENT AND NEEDING A BRIEF CHANGE. PT BECAME BOTH VERBALLY ABUSIVE AND STRIKING OUT AT STAFF. PT BRIEF CHANGED AND REPOSITIONED. PT WAS STILL YELLING BUT HAS QUIETED DOWN. CURRENTLY PT IS RESTING QUIETLY. CALL LIGHT IN REACH AND BED ALARM ON
[2024-04-30 07:16] VITALS: BP 167/86
[2024-04-30 09:30] LABS: Hematocrit 32.6 % (33.0-51.0); Hemoglobin 10.5 g/dL (11.5-16.0); Mean Corpuscular HGB 30.7 pg (26.0-34.0); Mean Corpuscular HGB Conc 32.2 g/dL (31.5-36.5); Mean Corpuscular Volume 95 fL (80-100); Mean Platelet Volume 9.6 fL (9.1-12.4); Platelet Count 319 K/mm3 (150-400); RDW Coefficient Variation 12.8 % (11.7-14.2); RDW Standard Deviation 44.5 fL (35.1-46.3); Red Blood Cell Count 3.42 M/mm3 (3.80-5.20); White Blood Cell Count 20.91 K/mm3 (4.00-11.30)
[2024-04-30 09:51] LABS: Bun/Creatinine Ratio 19.3 (12.0-20.0); Calcium, Blood 9.1 mg/dL (8.5-10.1); Creatinine, Blood 2.02 mg/dL (0.40-1.00); Potassium, Blood 4.7 mmol/L (3.5-5.5)
[2024-04-30 15:09] VITALS: BP 127/85
--- NOTE | 2024-04-30 18:24 | NUR ---
SHIFT SUMMARY PT AOX2, CONFUSED AND DELUSIONAL AT TIMES. DOES NOT CALL. BA ON. 1 ASSIST TO THE BR. NO COMPLAINTS PER THE PT. REPOSITIONED THROUGHOUT THE SHIFT. WAITING ON GUARDIANSHIP. PT CAN BE IMPULSIVE. CALL LIGHT WITHIN REACH, BED LOCKED AND IN THE LOWEST POSITION. WILL REPORT TO ONCOMING NURSE.
[2024-04-30 21:09] VITALS: BP 141/73
[2024-05-01 05:06] VITALS: BP 146/87
[2024-05-01 06:08] LABS: BASOPHILS ABSOLUTE AUTO 0.06 K/mm3 (0.00-0.23); BASOPHILS PERCENT AUTO 0 % (0-2); EOSINOPHILS PERCENT AUTO 3 % (0-6); Hematocrit 31.7 % (33.0-51.0); Hemoglobin 10.3 g/dL (11.5-16.0); IMMATURE GRAN ABSOLUTE AUTO 0.06 K/mm3 (0.00-0.10); IMMATURE GRAN PERCENT AUTO 0 % (0-1); LYMPHOCYTES ABSOLUTE AUTO 2.71 K/mm3 (0.84-5.20); LYMPHOCYTES PERCENT AUTO 17 % (21-46); MONOCYTES ABSOLUTE AUTO 1.08 K/mm3 (0.16-1.47); MONOCYTES PERCENT AUTO 7 % (4-13); Mean Corpuscular HGB 30.9 pg (26.0-34.0); Mean Corpuscular HGB Conc 32.5 g/dL (31.5-36.5); Mean Corpuscular Volume 95 fL (80-100); Mean Platelet Volume 9.7 fL (9.1-12.4); NEUTROPHILS ABSOLUTE AUTO 11.67 K/mm3 (1.96-9.15); NEUTROPHILS PERCENT AUTO 73 % (41-73); Platelet Count 324 K/mm3 (150-400); RDW Coefficient Variation 12.8 % (11.7-14.2); RDW Standard Deviation 44.2 fL (35.1-46.3); Red Blood Cell Count 3.33 M/mm3 (3.80-5.20); White Blood Cell Count 16.08 K/mm3 (4.00-11.30)
--- NOTE | 2024-05-01 06:15 | NUR ---
SHIFT SUMMARY PT A&Ox3. NO C/O PAIN. PT COOPERATIVE OF CARE. VSS. NO INSULINE COVERAGE NEEDED AT HS. PT IMPULSIVE, BED ALARM ON. NO ACUTE CHANGES. BED IN LOWEST POSITION AND CALL LIGHT IN REACH.
[2024-05-01 06:44] LABS: Bun/Creatinine Ratio 20.3 (12.0-20.0); Calcium, Blood 9.2 mg/dL (8.5-10.1); Creatinine, Blood 2.17 mg/dL (0.40-1.00); Potassium, Blood 4.8 mmol/L (3.5-5.5)
[2024-05-01 07:07] VITALS: BP 122/61
[2024-05-01] MEDS ORDERED: D5W-NS 1,000 ML IV SCH (08:05)
[2024-05-01 16:02] VITALS: BP 158/89
--- NOTE | 2024-05-01 18:53 | NUR ---
SHIFT SUMMARY PATIENT ALERT AND INTERACTIVE. PATIENT EASILY IRRITABLE BUT COOPERATIVE. PATIENT CONFUSED AND TALKING ABOUT HER . PATIENT STATING HE IS , THEN LATER SAYING HE IS DYING OF CANCER. PATIENT ABLE TO AMBULATE TO BR WITH STAND BY ASSIST. PATIENT SUSPICIOUS OF ANY MEDICATIONS BUT COOPERATIVE TO TAKE.
[2024-05-01 20:56] VITALS: BP 153/63
[2024-05-01] MEDS ORDERED: Apixaban 5 MG Tab PO SCH (21:00)
--- NOTE | 2024-05-02 06:07 | NUR ---
SHIFT SUMMARY NO ACUTE CHANGES. NO INSULINE COVERAGE NEEDED AT HS. NO C/O PAIN. PT ABLE TO SLEEP MOST OF THE NIGHT. VSS. BED ALARM ON. BED IN LOWEST POSITION AND CALL LIGHT IN REACH.
[2024-05-02 06:29] VITALS: BP 130/70
[2024-05-02 07:15] VITALS: BP 146/70
[2024-05-02 07:51] LABS: BASOPHILS ABSOLUTE AUTO 0.05 K/mm3 (0.00-0.23); BASOPHILS PERCENT AUTO 0 % (0-2); EOSINOPHILS ABSOLUTE AUTO 0.51 K/mm3 (0.00-0.68); EOSINOPHILS PERCENT AUTO 4 % (0-6); Hematocrit 31.4 % (33.0-51.0); Hemoglobin 10.1 g/dL (11.5-16.0); IMMATURE GRAN ABSOLUTE AUTO 0.03 K/mm3 (0.00-0.10); IMMATURE GRAN PERCENT AUTO 0 % (0-1); LYMPHOCYTES ABSOLUTE AUTO 2.25 K/mm3 (0.84-5.20); LYMPHOCYTES PERCENT AUTO 16 % (21-46); MONOCYTES ABSOLUTE AUTO 0.94 K/mm3 (0.16-1.47); MONOCYTES PERCENT AUTO 7 % (4-13); Mean Corpuscular HGB 30.4 pg (26.0-34.0); Mean Corpuscular HGB Conc 32.2 g/dL (31.5-36.5); Mean Corpuscular Volume 95 fL (80-100); Mean Platelet Volume 9.9 fL (9.1-12.4); NEUTROPHILS ABSOLUTE AUTO 10.06 K/mm3 (1.96-9.15); NEUTROPHILS PERCENT AUTO 73 % (41-73); Platelet Count 334 K/mm3 (150-400); RDW Coefficient Variation 12.5 % (11.7-14.2); RDW Standard Deviation 43.4 fL (35.1-46.3); Red Blood Cell Count 3.32 M/mm3 (3.80-5.20); White Blood Cell Count 13.84 K/mm3 (4.00-11.30)
[2024-05-02 08:27] LABS: Bun/Creatinine Ratio 23.4 (12.0-20.0); Calcium, Blood 8.8 mg/dL (8.5-10.1); Creatinine, Blood 2.05 mg/dL (0.40-1.00); Potassium, Blood 4.8 mmol/L (3.5-5.5)
--- NOTE | 2024-05-02 19:22 | NUR ---
SHIFT SUMMARY PATIENT ALERT AND INTERACTIVE. CONTINUES TO BE CONFUSED AT TIMES. CONTINUES TO TALK ABOUT . SOMETIMES SHE REFERS TO HIM DYING AND OTHER TIMES THAT HE IS . PATIENT ABLE TO AMBULATE TO THE BATHROOM WITH WALKER. PATIENT EAGER TO GET HOME. NO FAMILY SEEN TODAY.
[2024-05-02 20:05] VITALS: BP 178/72
[2024-05-03 04:02] VITALS: BP 153/63
--- NOTE | 2024-05-03 04:53 | NUR ---
A&OX3 WITH CONFUSION, TALKING ABOUT NEEDING TO DISCHARGE TODAY TO PLAN HER HUSBANDS , STATING HE "SUDDENLY OF CANCER," VSS, DENIES PAIN, SLEPT T/O THE NIGHT WAKING TO TOILET 1X AND EASILY RETURNING TO SLEEP, CALL LIGHT IN REACH, BED ALARM ACTIVE, WILL CONT TO MONITOR UNTIL REPORT GIVEN TO ONCOMING NURSE.
[2024-05-03 05:47] LABS: Hematocrit 30.3 % (33.0-51.0); Hemoglobin 9.8 g/dL (11.5-16.0); Mean Corpuscular HGB 30.7 pg (26.0-34.0); Mean Corpuscular HGB Conc 32.3 g/dL (31.5-36.5); Mean Corpuscular Volume 95 fL (80-100); Mean Platelet Volume 9.8 fL (9.1-12.4); Platelet Count 296 K/mm3 (150-400); RDW Coefficient Variation 12.5 % (11.7-14.2); RDW Standard Deviation 43.9 fL (35.1-46.3); Red Blood Cell Count 3.19 M/mm3 (3.80-5.20); White Blood Cell Count 13.91 K/mm3 (4.00-11.30)
[2024-05-03 07:09] VITALS: BP 147/63
[2024-05-03 15:10] VITALS: BP 147/133
[2024-05-03 15:12] VITALS: BP 157/71
--- NOTE | 2024-05-03 16:58 | NUR ---
SHIFT SUMMARY PATIENT ALERT AND INTERACTIVE. PATIENT CONTINUES TO TALK ABOUT " " OR "DYING ". PATIENT CONFUSED BUT EASILY REORIENTED. PATIENT USING WALKER TO AMBULATE WITH IN THE ROOM. BED ALARM AND CHAIR ALARM USED FOR SAFETY. CASE MANAGEMENT WORKING WITH PROVIDERS RELATED TO DISCHARGE PLAN.
[2024-05-03 19:53] VITALS: BP 171/124
[2024-05-04 05:34] VITALS: BP 155/79
--- NOTE | 2024-05-04 05:36 | NUR ---
A&OX2, VSS, SLEPT T/O THE NIGHT WAKING EASILY FOR TOILETING AND CARES, DENIED PAIN, SLEEPING W/BED ALARM ACTIVE, WILL CONT TO MONITOR UNTIL REPORT GIVEN TO ONCOMING NURSE.
--- NOTE | 2024-05-04 07:19 | NUR ---
ASSUMED CARE OF PATIENT. SLEEPING DURING SHIFT CHANGE REPORT. NO ACUTE CONCERNS.
[2024-05-04 07:38] VITALS: BP 183/80
[2024-05-04 15:36] VITALS: BP 137/80
--- NOTE | 2024-05-04 18:59 | NUR ---
END OF SHIFT SUMMARY: A&Ox3-4. PLEASANT AND COOPERATIVE WITH CARE. BED ALARM ACTIVATED D/T IMPULSIVENESS AND FORGETFUL; ABLE TO ADVOCATE NEEDS EFFECTIVELY WHEN STAFF PRESENT. CONTINENT OF BOWEL AND BLADDER. SBA c FWW FOR LINE MANAGEMENT AND SAFETY. NO C/O PAIN OR DISCOMFORT TODAY. GRANDSON AND HIS WERE IN TO SEE PATIENT AND ARE DISCUSSING TAKING HER HOME TO LIVE WITH THEM. BED IN LOWEST POSITION, CALL LIGHT WITHIN REACH, ALL NEEDS MET. REPORT TO ONCOMING NURSE.
[2024-05-04 19:50] VITALS: BP 148/65
--- NOTE | 2024-05-05 05:09 | NUR ---
A&OX2-3, PLEASANTLY CONFUSED BUT EASILY REORIENTED, VSS, DENIES PAIN, SLEPT T/O THE NIGHT WAKING EASILY FOR CARES, CALL LIGHT IN REACH, BED ALARM ACTIVE, WILL CONT TO MONITOR UNTIL REPORT GIVEN TO ONCOMING NURSE.
[2024-05-05 05:22] VITALS: BP 133/79
[2024-05-05 07:48] VITALS: BP 162/98
--- NOTE | 2024-05-05 08:08 | NUR ---
ASSUMED CARE OF PATIENT. SLEEPING DURING SHIFT CHANGE REPORT. NO ACUTE NEEDS.
--- NOTE | 2024-05-05 09:56 | NUR ---
PROVDER TO BEDSIDE. ORDER TO DC ALL IV MEDS AND ORDER RECEIVED FOR NO IV ACCESSS.
[2024-05-05] MEDS ORDERED: ELIQUIS5 M2 PO (15:38)
[2024-05-05] MEDS ORDERED: QUET25 PO (15:39)
[2024-05-05] MEDS ORDERED: Seroquel Xr50 MG PO (15:41)
--- NOTE | 2024-05-05 16:11 | NUR ---
DISCHARGE SUMMARY: A&Ox3-4. PLEASANT AND COOPERATIVE WITH CARE. CALLS APPROPRIATELY AND IS ABLE TO ADVOCATE NEEDS EFFECTIVELY. AMBULATES INDEPENDENTLY WITHIN ROOM; SBA FOR SAFETY. CONTINENT OF BOWEL AND BLADDER. LBM TODAY. MEDS WHOLE WITH FLUIDS. NO C/O PAIN OR DISCOMFORT. MMSE SCORE 9/30 WITH APPROPRIATE DECISION-MAKING REGARDING CARE. WANTS TO GO HOME WITH GRANDSAURAV RICHMOND. MEDICATIONS FAXED TO [facility] ON [address]. INSTRUCTED TO FOLLOW-UP WITH PROVIDER, DR CLEMENS, AND ENCOURAGED TO ESTABLISH CARE WITH A PRIMARY CARE PROVIDER. BENNY LEFT THE FLOOR WITH ALL BELONGINGS AND DISCHARGE PACKET, ESCORTED BY HER GRANDSONSAURAV, WHO IS ALSO PROVIDING TRANSPORTATION.
== END 2024-05-05 16:00 | disposition home or self-care (01) | DRG 689 ==
LOC: ER 15:46 → ERHOLD 15:47 → MEDS 15:47
PROVIDERS: Family Medicine; Physician Assistant; ADMIT Student in an Organized Health Care Education/Training Program
DX: N39.0 Urinary tract infection, site not specified (principal); G92.8 Other toxic encephalopathy; F05 Delirium due to known physiological condition; E87.20 Acidosis, unspecified; I82.412 Acute embolism and thrombosis of left femoral vein; F03.C11 Unspecified dementia, severe, with agitation; N18.9 Chronic kidney disease, unspecified; E11.22 Type 2 diabetes mellitus with diabetic chronic kidney disease; E78.5 Hyperlipidemia, unspecified; I12.9 Hypertensive chronic kidney disease with stage 1 through stage 4 chronic kidney disease, or unspecified chronic kidney disease; Z87.891 Personal history of nicotine dependence; B96.20 Unspecified Escherichia coli [E. coli] as the cause of diseases classified elsewhere; D63.1 Anemia in chronic kidney disease; I35.0 Nonrheumatic aortic (valve) stenosis; F03.C0 Unspecified dementia, severe, without behavioral disturbance, psychotic disturbance, mood disturbance, and anxiety
CPT/HCPCS: 36415; 74177; 80048; 80053; 80069; 80320; 81001; 82607; 82728; 82746; 82947; 83540; 83550; 83605; 83735; 84100; 85025; 85027; 85045; 85520; 85610; 85730; 87040; 87077; 87086; 87186; 93005; 93010; 93306; 93970; 96365-59; 96375; 97110; 97161; 97165; 99285-25; A9270; G0378; G0480; J0696; J1644; J7042; J7050; J7120; Q9967

== ENCOUNTER 2024-08-15 18:49 | Inpatient (IN) | payer MEDICARE ==
[~2024-08-15] VITALS: Ht 162.6 cm; Wt 59.5 kg
[~2024-08-15 18:49] MED LIST changes: +ELIQUIS5 M2 PO; +QUET25 PO; +Seroquel Xr50 MG PO
[2024-08-15] MEDS ORDERED: FentaNYL Citrate 50 MCG/ML 2 ML Injection ONE (19:04)
[2024-08-15] MEDS ORDERED: FentaNYL Citrate 50 MCG/ML 2 ML Injection IV ONE (19:05)
[2024-08-15 19:14] LABS: BASOPHILS ABSOLUTE AUTO 0.02 K/mm3 (0.00-0.23); BASOPHILS PERCENT AUTO 0 % (0-2); EOSINOPHILS PERCENT AUTO 0 % (0-6); Hemoglobin 10.6 g/dL (11.5-16.0); IMMATURE GRAN ABSOLUTE AUTO 0.05 K/mm3 (0.00-0.10); IMMATURE GRAN PERCENT AUTO 0 % (0-1); LYMPHOCYTES ABSOLUTE AUTO 0.85 K/mm3 (0.84-5.20); LYMPHOCYTES PERCENT AUTO 6 % (21-46); MONOCYTES ABSOLUTE AUTO 0.83 K/mm3 (0.16-1.47); MONOCYTES PERCENT AUTO 6 % (4-13); Mean Corpuscular HGB 30.8 pg (26.0-34.0); Mean Corpuscular HGB Conc 34.2 g/dL (31.5-36.5); Mean Corpuscular Volume 90 fL (80-100); Mean Platelet Volume 10.2 fL (9.1-12.4); NEUTROPHILS PERCENT AUTO 87 % (41-73); Platelet Count 223 K/mm3 (150-400); RDW Coefficient Variation 12.7 % (11.7-14.2); RDW Standard Deviation 41.8 fL (35.1-46.3); Red Blood Cell Count 3.44 M/mm3 (3.80-5.20); White Blood Cell Count 13.65 K/mm3 (4.00-11.30)
[2024-08-15 19:29] LABS: International Normalized Ratio 1.14; Prothrombin Time Results 12.1 Sec (9.7-11.5)
[2024-08-15 19:43] LABS: Alanine Aminotransfer (ALT/SGP 32 U/L (12-78); Albumin, Blood 3.4 g/dL (3.4-5.0); Alk Phos 95 U/L (50-136); Anion Gap 11 mmol/L (3-11); Aspartate Aminotrans (AST/SGOT 69 U/L (12-37); Bilirubin, Total 0.6 mg/dL (0.1-1.0); Blood Urea Nitrogen 37 mg/dL (8-24); CO2, Blood 27 mmol/L (21-32); Calcium, Blood 9.3 mg/dL (8.5-10.1); Chloride, Blood 109 mmol/L (98-108); Creatinine, Blood 1.76 mg/dL (0.40-1.00); Globulin, Blood 3.4 g/dL (2.2-4.0); Glomerular Filtration Rate 29 (60-); Glucose, Blood 148 mg/dL (70-99); Potassium, Blood 3.9 mmol/L (3.5-5.5); Sodium, Blood 143 mmol/L (136-145); Total Protein, Blood 6.8 g/dL (6.4-8.2)
[2024-08-15] MEDS ORDERED: Azithromycin 500 MG in NS 250 ML IV ONE (20:40)
[2024-08-15] MEDS ORDERED: CefTRIAXone Sodium 1,000 MG in NS 100 ML IV ONE (20:40)
[2024-08-15] MEDS ORDERED: Lactated Ringer's 1,000 ML IV ONE (20:40)
[2024-08-15] MEDS ORDERED: Labetalol HCL 5 MG/ML 4ML Injection (Single Dose) IV ONE (22:30)
[2024-08-15] MEDS ORDERED: Ondansetron 4 MG TAB PO PRN (23:20)
[2024-08-15 23:45] LABS: Ferritin, Serum 94 ng/mL (8-252); Iron Serum 16 ug/dL (50-170); Percent Saturation 6.3 % (15.0-50.0); Total Iron Binding Capacity 252 ug/dL (250-450)
[2024-08-16] VITALS (23 sets, daily range): BP systolic 133–225; BP diastolic 70–110
[2024-08-16] MEDS ORDERED: Labetalol HCL 5 MG/ML 4ML Injection (Single Dose) IV PRN ×2 (00:05→01:10)
[2024-08-16] MEDS ORDERED: FentaNYL Citrate 50 MCG/ML 2 ML Injection IV PRN ×4 (01:10→12:00)
[2024-08-16] MEDS ORDERED: Acetaminophen 325 MG Supp PR PRN (01:10)
[2024-08-16] MEDS ORDERED: Acetaminophen 325 MG TABLET PO PRN (01:15)
[2024-08-16 01:26] LABS: BASOPHILS ABSOLUTE AUTO 0.02 K/mm3 (0.00-0.23); BASOPHILS PERCENT AUTO 0 % (0-2); EOSINOPHILS ABSOLUTE AUTO 0.01 K/mm3 (0.00-0.68); EOSINOPHILS PERCENT AUTO 0 % (0-6); Hematocrit 29.9 % (33.0-51.0); IMMATURE GRAN ABSOLUTE AUTO 0.06 K/mm3 (0.00-0.10); IMMATURE GRAN PERCENT AUTO 0 % (0-1); LYMPHOCYTES PERCENT AUTO 10 % (21-46); MONOCYTES ABSOLUTE AUTO 0.87 K/mm3 (0.16-1.47); MONOCYTES PERCENT AUTO 6 % (4-13); Mean Corpuscular HGB 30.8 pg (26.0-34.0); Mean Corpuscular HGB Conc 33.4 g/dL (31.5-36.5); Mean Corpuscular Volume 92 fL (80-100); Mean Platelet Volume 10.3 fL (9.1-12.4); NEUTROPHILS ABSOLUTE AUTO 11.31 K/mm3 (1.96-9.15); NEUTROPHILS PERCENT AUTO 83 % (41-73); Platelet Count 202 K/mm3 (150-400); RDW Coefficient Variation 12.8 % (11.7-14.2); RDW Standard Deviation 42.5 fL (35.1-46.3); Red Blood Cell Count 3.25 M/mm3 (3.80-5.20); White Blood Cell Count 13.57 K/mm3 (4.00-11.30)
[2024-08-16 01:49] LABS: Albumin, Blood 2.9 g/dL (3.4-5.0); Albumin/Globulin Ratio 0.9 (0.8-1.8); Bilirubin, Total 0.4 mg/dL (0.1-1.0); Bun/Creatinine Ratio 21.5 (12.0-20.0); Calcium, Blood 8.7 mg/dL (8.5-10.1); Creatinine, Blood 1.63 mg/dL (0.40-1.00); Globulin, Blood 3.2 g/dL (2.2-4.0); Potassium, Blood 4.1 mmol/L (3.5-5.5); Total Protein, Blood 6.1 g/dL (6.4-8.2)
--- NOTE | 2024-08-16 05:26 | NUR ---
SHIFT SUMMARY DOLLY WAS ADMITTED FROM THE ED AT AROUND 0030. PT ORIENTED TO SELF ONLY, VERY FORGEFUL BUT DIRECTABLE. PT HERE WITH R HIP FX. SURGICAL CONSULTED. PT PAIN IS EXTREME WITH MOVEMENT, BUT NONEXISTANT AT REST. PREMEDICATE FOR CHANGES OR MOVING. PURWIC IN PLACE D/T BEDREST STATUS. SOME GENERAL BRUISING, ESPECIALLY R ELBOW. SKIN BREAKDOWN NOTED TO COCCYX. MEPLEX APPLIED. NO ACUTE EVENTS AFTER ARRIVAL.
[2024-08-16] MEDS ORDERED: Naloxone HCl 0.4MG / ML 1ML Vial IV PRN (07:40)
[2024-08-16] MEDS ORDERED: OxyCODONE HCL 5 MG TAB PO PRN (07:40)
[2024-08-16] MEDS ORDERED: HYDROmorphone HCl/Pf 1MG SYR IV PRN ×2 (07:40→12:00)
[2024-08-16] MEDS ORDERED: CefTRIAXone Sodium 2,000 MG in NS 100 ML IV SCH (09:00)
[2024-08-16] MEDS ORDERED: Ferrous Sulfate 325 MG Tab PO SCH (09:00)
[2024-08-16] MEDS ORDERED: CloNIDine 0.1 MG Tab PO SCH (09:00)
[2024-08-16] MEDS ORDERED: NS 250 ML IV PRN (09:00)
[2024-08-16] MEDS ORDERED: NS 1,000 ML IV SCH (11:00)
[2024-08-16] MEDS ORDERED: propofoL 20 ML IV ONE (11:55)
[2024-08-16] MEDS ORDERED: Scopolamine Hydrobromide Patch TOP SCH (11:55)
[2024-08-16] MEDS ORDERED: Sugammadex Sodium 200 MG/2ML SDV (100 MG/ML) ONE (11:55)
[2024-08-16] MEDS ORDERED: FentaNYL Citrate 50 MCG/ML 2 ML Injection ONE ×2 (11:55→14:17)
[2024-08-16] MEDS ORDERED: Lidocaine HCl 2% 20 ML MDV ONE (11:56)
[2024-08-16] MEDS ORDERED: Rocuronium Bromide 10 MG/ML 5ML Injection IV ONE (11:56)
[2024-08-16] MEDS ORDERED: Dexamethasone Sod Phos 10 MG/ML 1ML VIAL ONE (11:56)
[2024-08-16] MEDS ORDERED: Ondansetron HCl 2 MG / ML 2ML Vial ONE (11:56)
[2024-08-16] MEDS ORDERED: Ondansetron HCl 2 MG / ML 2ML Vial IV PRN (12:00)
[2024-08-16] MEDS ORDERED: Metoclopramide HCl 5MG / ML 2ML Vial IV PRN (12:00)
[2024-08-16] MEDS ORDERED: Bupivacaine 0.5% HCl 5 MG/ML 30MLVIAL ONE ×2 (12:07→13:24)
--- NOTE | 2024-08-16 12:15 | NUR ---
PT TO PROCEDURE AT THIS TIME.
[2024-08-16] MEDS ORDERED: Lactated Ringer's 1,000 ML IV SCH ×2 (12:25)
[2024-08-16] MEDS ORDERED: Phenylephrine HCl 100 MCG/ML-NS 10MLSYR (1MG/10ML) ONE (12:41)
--- NOTE | 2024-08-16 12:45 | NUR ---
RINGS REMOVED X2. PLACED IN A BAGGIE WITH PATIENT LABEL. PLACED IN INSIDE FRONT POCKET OF CHART.
[2024-08-16] MEDS ORDERED: CeFAZolin Sodium 2,000 MG in NS 100 ML IV SCH (12:55)
[2024-08-16] MEDS ORDERED: Tranexamic Acid 100 ML IV SCH (13:00)
[2024-08-16] MEDS ORDERED: EpiNEPhrine 1 MG/1 ML 1ML Vial ONE ×3 (13:24→13:31)
[2024-08-16] MEDS ORDERED: Atropine Sulfate 0.4 MG/1 ML Vial ONE (13:29)
[2024-08-16] MEDS ORDERED: HydrALAZINE HCl 20 MG / ML 1ML Vial IV PRN (14:35)
[2024-08-16] MEDS ORDERED: HydrALAZINE HCl 20 MG / ML 1ML Vial ONE (14:37)
--- NOTE | 2024-08-16 16:12 | NUR ---
"Spiritual Care | Pt. Request Pt. is awake in bed and welcomes my visit. Pt. is pleasant but quickly displays evidence of intermitant confusion. Facilitated a life review with Pt. responding with short answers. After awhile this manager floor offered prayer and the Pt. verbalized that she would like Prayer. Prayed with Pt. Pt. verbalized gratitude for the spiritual care visit."
[2024-08-16 17:41] LABS: Source, Urine Clean Catch
[2024-08-16 17:56] LABS: Bilirubin, Urine Neg (Neg); Blood, Urine 1+ (Neg); Glucose Qualitative, Urine Neg (Neg); Ketones, Urine Neg (Neg); Leukocyte Esterase, Urine 1+ (Neg); Nitrite, Urine Neg (Neg); Protein, Urine 2+ (Neg); Specific Gravity, Urine 1.025 (1.003-1.022); Urobilinogen, Urine NORM (Normal)
[2024-08-16 18:01] LABS: Appearance, Urine Clear (Clear); Color, Urine Pale Yellow (P-Yellow)
[2024-08-16 18:03] LABS: Bacteria Mod /hpf; Squamous Epithelial Cells Few /hpf (Few)
--- NOTE | 2024-08-16 18:09 | NUR ---
ASSUMED CARE OF PT. PT VERY PLEASENT AND COOPERATIVE WITH CARE AND HAS BEEN AGREABLE THUS FAR. PT KNOWS WHO SHE IS, KNOWS THE SITUATION AND THAT SHE IS IN THE HOSPITAL. PAIN IS MINIMAL WHILE LAYING STILL BUT SIGNIFICANT WHEN MOVING. PT MEDICATED PER MAR FOR REPOSITIONING. 1200 PT TAKEN FOR RIGHT HIP SX PROCEDURE. 1530 PT RETURNED A/O AND IN GOOD SPIRITS. DAUGHTER WAS IN ROOM WAITING, SEEMED A LITTLE ANXIOUS PACING BACK AND FORTH. WHEN PT ARRIVED RN BEDSIDE SWALLOW SCREEN EVAL DONE TO MAKE SURE PT WOULD NOT ASPIRATE. SWALLOW EVAL SCHEDULED FOR THE MORNING. RIGHT HIP AQWUACEL C/D/I. MINIMAL PAIN NOTED. PT PRE MEDICATED FOR MOVMENT. NEW IV STARTED TO LEFT FA. MORNING
[2024-08-16] MEDS ORDERED: QUEtiapine Fumarate 50 MG TAB PO SCH (21:00)
[2024-08-17] VITALS (11 sets, daily range): BP systolic 119–187; BP diastolic 59–93
--- NOTE | 2024-08-17 05:37 | NUR ---
SHIFT SUMMARY PT POD 0 R HIP PINNING. PT HAS RESTED T/O THE NIGHT. PT DENIED PAIN MOST OF THE NIGHT. WHEN ASKED ABOUT PAIN AT THE BEGINNING OF SHIFT PT LAUGHED AND STATED "IT'S THERE", BUT DECLINED ANYTHING FOR PAIN. PAIN ASSESSED T/O SHIFT AND PT DENIED PAIN WITH SUBSEQUENT NURSE ROUNDS. PT APPEARS COMFORTABLE AT REST. SURGICAL SITE WNL. VITALS ARE STABLE. MCDANIEL IN PLACE PATENT AND DRAINING. PT HAS HX OF DEMENTIA, PLESANTLY CONFUSED. MOOD IS HAPPY, PT LAUGHING AND TALKATIVE WITH STAFF. BED ALARM IN PLACE. BED IN LOWEST POSITION, CALL LIGHT WITHIN REACH.
[2024-08-17 06:13] LABS: BASOPHILS ABSOLUTE AUTO 0.02 K/mm3 (0.00-0.23); BASOPHILS PERCENT AUTO 0 % (0-2); EOSINOPHILS PERCENT AUTO 0 % (0-6); Hematocrit 24.5 % (33.0-51.0); IMMATURE GRAN ABSOLUTE AUTO 0.09 K/mm3 (0.00-0.10); IMMATURE GRAN PERCENT AUTO 1 % (0-1); LYMPHOCYTES ABSOLUTE AUTO 1.67 K/mm3 (0.84-5.20); LYMPHOCYTES PERCENT AUTO 12 % (21-46); MONOCYTES ABSOLUTE AUTO 1.11 K/mm3 (0.16-1.47); MONOCYTES PERCENT AUTO 8 % (4-13); Mean Corpuscular HGB 30.5 pg (26.0-34.0); Mean Corpuscular HGB Conc 32.7 g/dL (31.5-36.5); Mean Corpuscular Volume 94 fL (80-100); Mean Platelet Volume 10.4 fL (9.1-12.4); NEUTROPHILS ABSOLUTE AUTO 10.68 K/mm3 (1.96-9.15); NEUTROPHILS PERCENT AUTO 79 % (41-73); Platelet Count 195 K/mm3 (150-400); RDW Coefficient Variation 13.1 % (11.7-14.2); RDW Standard Deviation 44.6 fL (35.1-46.3); Red Blood Cell Count 2.62 M/mm3 (3.80-5.20); White Blood Cell Count 13.57 K/mm3 (4.00-11.30)
[2024-08-17 06:45] LABS: Magnesium, Blood 1.9 mg/dL (1.6-2.4)
[2024-08-17 06:46] LABS: Albumin, Blood 2.5 g/dL (3.4-5.0); Albumin/Globulin Ratio 0.8 (0.8-1.8); Bilirubin, Total 0.4 mg/dL (0.1-1.0); Bun/Creatinine Ratio 20.9 (12.0-20.0); Calcium, Blood 8.6 mg/dL (8.5-10.1); Creatinine, Blood 1.48 mg/dL (0.40-1.00); Globulin, Blood 3.1 g/dL (2.2-4.0); Phosphorus, Blood 3.1 mg/dL (2.5-4.9); Potassium, Blood 4.1 mmol/L (3.5-5.5); Total Protein, Blood 5.6 g/dL (6.4-8.2)
[2024-08-17] MEDS ORDERED: Atenolol 25 MG Tab PO SCH (10:00)
[2024-08-17] MEDS ORDERED: Losartan Potassium 50 MG Tab PO SCH (10:00)
[2024-08-17] MEDS ORDERED: CloNIDine 0.1 MG Tab PO SCH (10:00)
--- NOTE | 2024-08-17 17:14 | NUR ---
SHIFT SUMMARY: PATIENT ALERT AND ORIENTED TO SELF ONLY, CONFUSED BUT EASILY REDIRECTABLE. PATIENT REPORTS HEADACHE, PAIN TO R SHOULDER AND R HIP. PATIENT MEDICATED FOR PAIN PER EMAR c GOOD EFFECT. PATIENT POD#1 R HIP PINNING, AQUACEL DRESSING TO SITE C/D/I. PATIENT DENIES CP/PRESSURE, SOB, N/V AND DIZZINESS. PATIENT ON TELE, SB/SR HR IN THE MID 40'S TO HIGH 90'S BPM. PATIENT WORK c PT, SAT UP TO CHAIR FOR ABOUT 4 HRS AND TRANSFERRED BACK TO BED USING KATHARINA LIFT c 3 MAX ASSIST. PATIENT SLEPT ON/OFF T/O SHIFT. PATIENT ON CONSISTENT CARB DIET, FEED ASSIST, POOR APPETITE. PATIENT HAS MCDANIEL PATENT, DRAINING YELLOW URINE TO GRAVITY. PATIENT REPOSITIONED T/O SHIFT. VITAL SIGNS REVIEWED. BED ALARM ON FOR SAFETY. CALL LIGHT IN REACH.
--- NOTE | 2024-08-17 18:50 | NUR ---
ADDITIONAL NOTE: PATIENT HAS NEPHROLOGY CONSULT FOR CKD. THIS RN CALLED DR. CLEMENS (NEPHROLOGY) c CELLPHONE# [phone] AT 9100 AND WENT TO VOICE MAIL. THIS RN LEFT MESSAGE REGARDING CONSULT.
--- NOTE | 2024-08-17 21:48 | NUR ---
CALLED DR CLEMENS AND DISCUSSED LABS AND PTS MEDS/IV FLUIDS PER EMAR.NO CHANGE OF ORDERS RECEIVED.
[2024-08-18] VITALS (7 sets, daily range): BP systolic 140–203; BP diastolic 63–87
--- NOTE | 2024-08-18 04:16 | NUR ---
FORMING MACHINE UPKEEP MECHANIC SUMMARY AT START OF SHIFT PT WAS MINIMALLY RESPONSIVE TO STAFF AND STARED BLANKLY AT THE CEILING. PT WOULD NOT FOLLOW DIRECTION AND HER GAZE AT THE CEILING WOULD NOT CHANGE EVEN WHEN HER HEAD WAS ELEVATED. PT'S NECK WAS VERY STIFF AND SHE WOULD NOT LOOK SIDE TO SIDE OR FOLLOW MY FINGER. PT ALSO LOOKED TO HAVE A SLIGHT DROOP TO THE R SIDE OF HER MOUTH AND DAY SHIFT RN GAVE IN REPORT THAT HER R HAND BOARD HANDLER WAS SLIGHTLY WEAKER WELL. VITALS STABLE AT THIS TIME. NOTIFIED DR HAQ WHO CAME UP TO ASSESS PT. DR HAQ ORDERED A HEAD CT WHICH INDICATED A POSSIBLE R SIDE INFARCT. DR HAQ NOTIFIED OF CT RESULTS AND DUE TO HAVING UNKNOWN TIME OF START OF SYMPTOMS NO FURTHER ORDERS GIVEN AND STATED TO CONTINUE MONITORING PT THROUGH THE NIGHT. OVER NEXT HOUR PT BECAME MORE INTERACTIVE AND WAS FOLLOWING DIRECTION A LITTLE BETTER. PT WAS ABLE TO TAKE MEDS WITH APPLESAUCE AND HAD NO ISSUE SWALLOWING. PT HAS DENIED PAIN THROUGH THE NIGHT AND HAS NOT SHOWN SIGNS OF BEING IN PAIN EVEN WHILE REPOSITIONING. VITALS HAVE REMAINED STABLE ASIDE FROM HR TOUCHING 40'S AT TIMES BUT PT ASYMPTOMATIC. WILL CONTINUE TO MONITOR.
[2024-08-18 06:16] LABS: BASOPHILS ABSOLUTE AUTO 0.02 K/mm3 (0.00-0.23); BASOPHILS PERCENT AUTO 0 % (0-2); EOSINOPHILS PERCENT AUTO 2 % (0-6); Hematocrit 22.3 % (33.0-51.0); Hemoglobin 7.1 g/dL (11.5-16.0); IMMATURE GRAN ABSOLUTE AUTO 0.05 K/mm3 (0.00-0.10); IMMATURE GRAN PERCENT AUTO 1 % (0-1); LYMPHOCYTES ABSOLUTE AUTO 1.27 K/mm3 (0.84-5.20); LYMPHOCYTES PERCENT AUTO 13 % (21-46); MONOCYTES ABSOLUTE AUTO 0.69 K/mm3 (0.16-1.47); MONOCYTES PERCENT AUTO 7 % (4-13); Mean Corpuscular HGB 30.2 pg (26.0-34.0); Mean Corpuscular HGB Conc 31.8 g/dL (31.5-36.5); Mean Corpuscular Volume 95 fL (80-100); Mean Platelet Volume 10.4 fL (9.1-12.4); NEUTROPHILS PERCENT AUTO 77 % (41-73); Platelet Count 175 K/mm3 (150-400); RDW Coefficient Variation 13.2 % (11.7-14.2); RDW Standard Deviation 45.7 fL (35.1-46.3); Red Blood Cell Count 2.35 M/mm3 (3.80-5.20); White Blood Cell Count 9.73 K/mm3 (4.00-11.30)
[2024-08-18 06:46] LABS: Albumin, Blood 2.3 g/dL (3.4-5.0); Anion Gap 9 mmol/L (3-11); Blood Urea Nitrogen 34 mg/dL (8-24); Bun/Creatinine Ratio 21.2 (12.0-20.0); CO2, Blood 22 mmol/L (21-32); Calcium, Blood 8.4 mg/dL (8.5-10.1); Chloride, Blood 114 mmol/L (98-108); Glomerular Filtration Rate 32 (60-); Glucose, Blood 89 mg/dL (70-99); Magnesium, Blood 1.8 mg/dL (1.6-2.4); Phosphorus, Blood 3.1 mg/dL (2.5-4.9); Potassium, Blood 3.9 mmol/L (3.5-5.5); Sodium, Blood 141 mmol/L (136-145)
[2024-08-18] MEDS ORDERED: Atenolol 25 MG Tab PO ONE (09:25)
[2024-08-18] MEDS ORDERED: Atorvastatin 40 MG Tab PO SCH (09:35)
[2024-08-18 09:57] LABS: Hematocrit 23.3 % (33.0-51.0); Hemoglobin 7.7 g/dL (11.5-16.0); Mean Corpuscular Volume 94 fL (80-100); Mean Platelet Volume 10.3 fL (9.1-12.4); Platelet Count 181 K/mm3 (150-400); RDW Coefficient Variation 13.1 % (11.7-14.2); RDW Standard Deviation 44.7 fL (35.1-46.3); Red Blood Cell Count 2.48 M/mm3 (3.80-5.20); White Blood Cell Count 10.37 K/mm3 (4.00-11.30)
[2024-08-18] MEDS ORDERED: D5W-NS 1,000 ML IV SCH (10:45)
--- NOTE | 2024-08-18 12:18 | NUR ---
PT UNABLE/UNWILLING TO PARTICIPATE WITH MRI SCREENING FORM. AND MR TECH AWARE.
--- NOTE | 2024-08-18 12:27 | NUR ---
PT TO CTA VIA STRETCHER
[2024-08-18] MEDS ORDERED: Darbepoetin Alfa in Polysorbat 25 MCG/0.42 ML Syringe SC SCH ×2 (13:40→16:00)
[2024-08-18 14:27] LABS: Hematocrit 23.1 % (33.0-51.0); Hemoglobin 7.4 g/dL (11.5-16.0); Mean Corpuscular HGB 30.6 pg (26.0-34.0); Mean Corpuscular Volume 96 fL (80-100); Mean Platelet Volume 10.3 fL (9.1-12.4); Platelet Count 153 K/mm3 (150-400); RDW Coefficient Variation 13.2 % (11.7-14.2); RDW Standard Deviation 46.1 fL (35.1-46.3); Red Blood Cell Count 2.42 M/mm3 (3.80-5.20); White Blood Cell Count 10.38 K/mm3 (4.00-11.30)
--- NOTE | 2024-08-18 17:42 | NUR ---
END OF SHIFT PT RESTING IN BED. IV INFUSING R FA. SITTER AT BEDSIDE. MCDANIEL CATHETER IN PLACE DRAINING YELLOW URINE. TELEMETRY ON. WILL CONTINUE TO MONITOR. PT ALERT TO SELF.
[2024-08-18 19:59] LABS: Hematocrit 23.8 % (33.0-51.0); Hemoglobin 7.6 g/dL (11.5-16.0); Mean Corpuscular HGB 30.2 pg (26.0-34.0); Mean Corpuscular HGB Conc 31.9 g/dL (31.5-36.5); Mean Corpuscular Volume 94 fL (80-100); Mean Platelet Volume 10.2 fL (9.1-12.4); Platelet Count 192 K/mm3 (150-400); RDW Coefficient Variation 12.8 % (11.7-14.2); RDW Standard Deviation 43.9 fL (35.1-46.3); Red Blood Cell Count 2.52 M/mm3 (3.80-5.20); White Blood Cell Count 10.13 K/mm3 (4.00-11.30)
[2024-08-18] MEDS ORDERED: Arginine/Glutamine/Calcium Hmb 1 Packet PO SCH (21:00)
[2024-08-19 03:17] VITALS: BP 198/77
--- NOTE | 2024-08-19 04:56 | NUR ---
TRANSPORTATION PROGRAM DIRECTOR SUMMARY PT MUCH MORE AWAKE AND INTERACTIVE WITH STAFF COMPARED TO PREVIOUS NOC SHIFT. PT DID HAVE A 1:1 SITTER FOR THE FIRST FEW HOURS OF THE SHIFT SINCE SHE WAS PULLING AT LINES AND CATHETER, HOWEVER AFTER RECEIVING SCHEDULED SEROQUEL PT HAS BEEN VERY CALM AND HAS SLEPT MOST OF THE NIGHT. PT DENIES PAIN WHEN ASKED AND DOESN'T EXPRESS SIGNS OF PAIN WHEN BEING REPOSITIONED. PT HYPERTENSIVE BUT AFTER RELAXING BP IMPROVED. OTHER VSS, WILL CONTINUE TO MONITOR.
[2024-08-19 06:37] LABS: BASOPHILS ABSOLUTE AUTO 0.05 K/mm3 (0.00-0.23); BASOPHILS PERCENT AUTO 1 % (0-2); EOSINOPHILS ABSOLUTE AUTO 0.46 K/mm3 (0.00-0.68); EOSINOPHILS PERCENT AUTO 5 % (0-6); Hematocrit 22.8 % (33.0-51.0); Hemoglobin 7.4 g/dL (11.5-16.0); IMMATURE GRAN ABSOLUTE AUTO 0.04 K/mm3 (0.00-0.10); IMMATURE GRAN PERCENT AUTO 1 % (0-1); LYMPHOCYTES ABSOLUTE AUTO 1.52 K/mm3 (0.84-5.20); LYMPHOCYTES PERCENT AUTO 18 % (21-46); MONOCYTES ABSOLUTE AUTO 0.63 K/mm3 (0.16-1.47); MONOCYTES PERCENT AUTO 7 % (4-13); Mean Corpuscular HGB 30.6 pg (26.0-34.0); Mean Corpuscular HGB Conc 32.5 g/dL (31.5-36.5); Mean Corpuscular Volume 94 fL (80-100); Mean Platelet Volume 10.4 fL (9.1-12.4); NEUTROPHILS ABSOLUTE AUTO 5.96 K/mm3 (1.96-9.15); NEUTROPHILS PERCENT AUTO 69 % (41-73); Platelet Count 187 K/mm3 (150-400); RDW Standard Deviation 44.9 fL (35.1-46.3); Red Blood Cell Count 2.42 M/mm3 (3.80-5.20); White Blood Cell Count 8.66 K/mm3 (4.00-11.30)
[2024-08-19 06:58] LABS: Magnesium, Blood 1.7 mg/dL (1.6-2.4)
[2024-08-19 06:59] LABS: Albumin/Globulin Ratio 0.7 (0.8-1.8); Bilirubin, Total 0.3 mg/dL (0.1-1.0); Bun/Creatinine Ratio 28.5 (12.0-20.0); Calcium, Blood 7.9 mg/dL (8.5-10.1); Creatinine, Blood 1.37 mg/dL (0.40-1.00); Globulin, Blood 2.7 g/dL (2.2-4.0); Potassium, Blood 3.8 mmol/L (3.5-5.5); Total Protein, Blood 4.7 g/dL (6.4-8.2)
[2024-08-19 07:14] VITALS: BP 191/72
[2024-08-19] MEDS ORDERED: Sodium Phosphate 20 MM in Dextrose 5% 500 ML IV STA (07:36)
[2024-08-19] MEDS ORDERED: N-Acetylcysteine 600 MG CAP PO SCH (09:00)
[2024-08-19] MEDS ORDERED: Atenolol 50 MG Tab PO SCH (09:00)
[2024-08-19 14:42] VITALS: BP 185/61
--- NOTE | 2024-08-19 15:07 | NUR ---
PT TO ROOM 212 FROM PACU. PRINEO DRESSING LEFT HIP. PT WITH POSITIVE DP PULSE AND ABLE TO WIGGLE TOES/POSITIVE SENSATION. POLAR PACK ON. VSS. WILL CONTINUE TO MONITOR.
[2024-08-19 18:48] VITALS: BP 214/87
[2024-08-19 21:39] VITALS: BP 245/101
[2024-08-20] VITALS (8 sets, daily range): BP systolic 140–201; BP diastolic 72–104
--- NOTE | 2024-08-20 04:32 | NUR ---
NOC SUMMARY- PT CONTINUES TO HAVE HTN ISSUES. PT DENIES PAIN OR DISCOMFORT. PT REPOSITIONED Q 2. BRIEF CHANGED NEEDED. PT VOIDING. PT HAS BEEN RESTING QUIETLY. CALL LIGHT IN REACH AND BED ALARM ON.
[2024-08-20 05:03] LABS: Hematocrit 24.5 % (33.0-51.0); Hemoglobin 7.9 g/dL (11.5-16.0)
[2024-08-20 05:21] LABS: Anion Gap 10 mmol/L (3-11); Blood Urea Nitrogen 43 mg/dL (8-24); Bun/Creatinine Ratio 30.1 (12.0-20.0); CO2, Blood 20 mmol/L (21-32); Calcium, Blood 8.3 mg/dL (8.5-10.1); Chloride, Blood 113 mmol/L (98-108); Creatinine, Blood 1.43 mg/dL (0.40-1.00); Glomerular Filtration Rate 37 (60-); Glucose, Blood 104 mg/dL (70-99); Magnesium, Blood 1.8 mg/dL (1.6-2.4); Phosphorus, Blood 3.3 mg/dL (2.5-4.9); Potassium, Blood 3.7 mmol/L (3.5-5.5); Sodium, Blood 139 mmol/L (136-145)
[2024-08-20] MEDS ORDERED: Aspirin 325 MG Tab PO ONE (08:50)
[2024-08-20] MEDS ORDERED: Losartan Potassium 50 MG Tab PO SCH (09:00)
[2024-08-20] MEDS ORDERED: CloNIDine 0.1 MG Tab PO SCH (09:00)
[2024-08-20] MEDS ORDERED: Atenolol 25 MG Tab PO SCH (09:00)
[2024-08-20] MEDS ORDERED: Clopidogrel Bisulfate 75 MG Tab PO SCH (09:00)
[2024-08-20] MEDS ORDERED: ZINC OXIDE/PETROLATUM, YELLOW 1 APPLIC/71 GM PASTE TOP PRN (14:40)
[2024-08-20 14:44] LABS: Hematocrit 22.9 % (33.0-51.0); Hemoglobin 7.8 g/dL (11.5-16.0)
--- NOTE | 2024-08-20 16:37 | NUR ---
SHIFT SUMMARY PT ALERT AND ORIENTED TO SELF ONLY. DIFFICULTY WITH FOLLOWING COMMANDS. FREQUENT REDIRECTION. SOFT SPEECH. WEAKNESS TO RIGHT SIDE. MEDS CRUSHED IN PUDDING OR APPLESAUCE - TOLERATING WELL. BP IMPROVED SINCE RESTARTING HTN MEDICATIONS. ANTICOAGS STARTED TODAY. NO EVENTS REPORTED BY TELEMETRY - SINUS RHYTHM. ON ROOM AIR. SATS >90%. POD X4 RIGHT HIP PINNING. X3 AQUACELL C/D/I. DENIES PAIN AT THIS TIME. UNABLE TO WORK WITH THERAPY DUE TO DIFFICULTY WITH MOBILITY AND FOLLOWING COMMANDS. TOLERATING PO INTAKE - FEED ASSIST REQUIRED. INCONTINENT, CHANGING ATTENDS PRN TO KEEP C/D/I. BED BATH PERFORMED TODAY. MEPILEX TO COCCYX CHANGED. CALL LIGHT IN REACH. BED ALARM ON.
[2024-08-21 03:43] VITALS: BP 132/87
--- NOTE | 2024-08-21 05:19 | NUR ---
NOC SUMMARY- NO NEW ISSUES. PT REPOSITIONED Q 2 HRS. PT BRIEF CHANGED NEEDED. PT DRESSING C/D/I. PT RESTED QUIETLY THROUGHOUT SHIFT. CALL LIGHT IN REACH AND BED ALARM ON.
[2024-08-21 05:29] LABS: Hematocrit 22.5 % (33.0-51.0); Hemoglobin 7.4 g/dL (11.5-16.0)
[2024-08-21 07:12] VITALS: BP 181/81
[2024-08-21] MEDS ORDERED: Polyethylene Glycol 3350 17 gm PO SCH (09:00)
[2024-08-21] MEDS ORDERED: Losartan/HCTZ 50-12.5 TAB PO SCH (09:00)
[2024-08-21] MEDS ORDERED: AmLODIPine Besylate 5 MG Tab PO SCH (09:00)
[2024-08-21] MEDS ORDERED: Sennosides 8.6 MG Tab PO SCH (09:00)
[2024-08-21 09:20] VITALS: BP 165/83
[2024-08-21 10:24] VITALS: BP 157/69
[2024-08-21 10:33] LABS: Anion Gap 9 mmol/L (3-11); Blood Urea Nitrogen 39 mg/dL (8-24); CO2, Blood 24 mmol/L (21-32); Calcium, Blood 8.3 mg/dL (8.5-10.1); Chloride, Blood 113 mmol/L (98-108); Glomerular Filtration Rate 42 (60-); Glucose, Blood 118 mg/dL (70-99); Magnesium, Blood 1.6 mg/dL (1.6-2.4); Phosphorus, Blood 2.8 mg/dL (2.5-4.9); Potassium, Blood 3.8 mmol/L (3.5-5.5); Sodium, Blood 142 mmol/L (136-145)
--- NOTE | 2024-08-21 10:59 | NUR ---
LABS REPORTED TO DR CLEMENS
[2024-08-21 11:55] VITALS: BP 168/71
[2024-08-21 13:45] VITALS: BP 159/87
--- NOTE | 2024-08-21 14:31 | NUR ---
REPORT PASSED TO RN AT [facility] AT THIS TIME. TRANSPORT HERE AT 1428 AND PT MOVED UNTO [facility]. PT LEFT UNIT AT 1433.
[2024-08-23] MEDS ORDERED: Ferrous Sulfate 325 MG Tab PO SCH (09:00)
== END 2024-08-21 14:33 | DRG 480 ==
LOC: ER 18:49 → SURS 23:18
PROVIDERS: Family Medicine; Hospitalist; Internal Medicine Nephrology; Orthopaedic Surgery Sports Medicine; Student in an Organized Health Care Education/Training Program; ADMIT Student in an Organized Health Care Education/Training Program
PROC: 0QH636Z Insertion of Intramedullary Internal Fixation Device into Right Upper Femur, Percutaneous Approach (ICD-10-PCS; principal; 2024-08-16 12:30)
DX: S72.141A Displaced intertrochanteric fracture of right femur, initial encounter for closed fracture (principal); I63.531 Cerebral infarction due to unspecified occlusion or stenosis of right posterior cerebral artery; J69.0 Pneumonitis due to inhalation of food and vomit; K86.2 Cyst of pancreas; F03.92 Unspecified dementia, unspecified severity, with psychotic disturbance; N25.81 Secondary hyperparathyroidism of renal origin; N17.9 Acute kidney failure, unspecified; E87.20 Acidosis, unspecified; E11.22 Type 2 diabetes mellitus with diabetic chronic kidney disease; I12.9 Hypertensive chronic kidney disease with stage 1 through stage 4 chronic kidney disease, or unspecified chronic kidney disease; I16.0 Hypertensive urgency; E78.5 Hyperlipidemia, unspecified; W18.39XA Other fall on same level, initial encounter; N18.30 Chronic kidney disease, stage 3 unspecified; E86.9 Volume depletion, unspecified; D50.9 Iron deficiency anemia, unspecified; E88.09 Other disorders of plasma-protein metabolism, not elsewhere classified; I95.9 Hypotension, unspecified; R31.29 Other microscopic hematuria; R91.1 Solitary pulmonary nodule; R79.89 Other specified abnormal findings of blood chemistry; E27.8 Other specified disorders of adrenal gland; E83.39 Other disorders of phosphorus metabolism; Y92.009 Unspecified place in unspecified non-institutional (private) residence as the place of occurrence of the external cause; Z87.891 Personal history of nicotine dependence; Z86.718 Personal history of other venous thrombosis and embolism; Z79.01 Long term (current) use of anticoagulants; Z79.84 Long term (current) use of oral hypoglycemic drugs
CPT/HCPCS: 36415; 70450; 70496; 70498; 72125; 72128; 72131; 73502; 73522; 80053; 80069; 81001; 82550; 82607; 82728; 82746; 83036; 83540; 83550; 83605; 83735; 83880; 84100; 84484; 85014; 85018; 85025; 85027; 85610; 85730; 86850; 86900; 86901; 87040; 87086; 92526; 92610; 93005; 93010; 94760; 96365; 96367; 96375; 97110; 97161; 97530; 99285-25; A9270; C1713; C1769; J0171; J0360; J0456; J0461; J0696; J0881; J1100; J1171; J2371; J2405; J2704; J3010; J7030; J7042; J7050; J7060; J7120; Q9967